=== PATIENT | female | born 1995 | race African-American/Black ===

== ENCOUNTER 2025-02-14 10:29 | Emergency (ER) | payer OTHER ==
[~2025-02-14] VITALS: Ht 160 cm; Wt 65.8 kg
[2025-02-14 10:35] VITALS: BP 102/71; TEMP 98.3
[2025-02-14] MEDS ORDERED: AMOX500C2 PO (11:20)
[2025-02-14] MEDS ORDERED: AMOXICILLIN TRIHYDRATE 250 MG CAPSULE ONE (11:27)
[2025-02-14] MEDS: AMOXICILLIN TRIHYDRATE 500 MG CAPSULE PO ONE (11:29)
[2025-02-14 11:30] VITALS: O2SAT 97
== END 2025-02-14 11:30 | disposition home or self-care (01) ==
LOC: ER 10:35
DX: J02.9 Acute pharyngitis, unspecified (principal); Z88.6 Allergy status to analgesic agent